=== PATIENT | male | born 1950 | race Caucasian/White ===

== ENCOUNTER 2022-07-08 13:20 | Emergency (ER) | payer OTHER ==
[~2022-07-08] VITALS: Ht 170.2 cm; Wt 83.9 kg
[2022-07-08 13:27] VITALS: BP 130/96
--- NOTE | 2022-07-08 13:50 | NUR ---
pt states he would like to leave AMA, refusing to sign paperwork. informed daughter at this time that param is currently with critical pt and informed both that pt will have to wait until nurse and physican can assess for further orders which can be an extended wait due to capacity of ER. pt verbally disclosing he is upset because of the wait.
== END 2022-07-08 13:50 | disposition left against medical advice (07) ==
LOC: MED 13:20
DX: M25.511 Pain in right shoulder (principal); Z53.21 Procedure and treatment not carried out due to patient leaving prior to being seen by health care provider
CPT/HCPCS: 99281